=== PATIENT | female | born 1950 | race Caucasian/White ===

== ENCOUNTER → 2016-07-09 | Outpatient (CLI) | payer OTHER | LOC: BMCIMAGING 14:04 | PROVIDERS: ATTEND Internal Medicine | DX: J40 Bronchitis, not specified as acute or chronic (principal) ==

== ENCOUNTER → 2016-11-20 | Outpatient (CLI) | payer OTHER | LOC: BMCIMAGING 13:39 | PROVIDERS: ATTEND Internal Medicine | DX: Z12.31 Encounter for screening mammogram for malignant neoplasm of breast (principal); R92.8 Other abnormal and inconclusive findings on diagnostic imaging of breast | CPT/HCPCS: G0202 ==

== ENCOUNTER → 2016-11-27 | Outpatient (CLI) | payer OTHER | LOC: BMCIMAGING 10:07 | PROVIDERS: ATTEND Internal Medicine | DX: Z12.39 Encounter for other screening for malignant neoplasm of breast (principal); N63 Unspecified lump in breast | CPT/HCPCS: G0206 ==

== ENCOUNTER → 2016-12-03 | Outpatient (CLI) | payer OTHER ==
[~2016-12-03] MED LIST: BUPIVACAINE 0.5% 10 ML SDV ONE; LIDO/EPI 1% **Not for Epidural 20 ML MDV ONE; LIDOCAINE 1% 300 MG/30 ML SDV ONE; THROMBIN (BOVINE) 5,000 UNIT VIAL TP ONE
== END ==
LOC: FIMAGING 07:05
PROVIDERS: ATTEND Internal Medicine
PROC: 0HBT3ZX Excision of Right Breast, Percutaneous Approach, Diagnostic (ICD-10-PCS; principal; 2016-12-03)
DX: C50.911 Malignant neoplasm of unspecified site of right female breast (principal)

== ENCOUNTER → 2016-12-11 | Outpatient (CLI) | payer OTHER ==
[~2016-12-11] MED LIST changes: -BUPIVACAINE 0.5% 10 ML SDV ONE; -LIDO/EPI 1% **Not for Epidural 20 ML MDV ONE; -THROMBIN (BOVINE) 5,000 UNIT VIAL TP ONE
== END ==
LOC: FIMAGING 07:05
PROVIDERS: ATTEND Surgery
PROC: 3E0W3HZ Introduction of Radioactive Substance into Lymphatics, Percutaneous Approach (ICD-10-PCS; principal; 2016-12-11)
PROC: 0HHT31Z Insertion of Radioactive Element into Right Breast, Percutaneous Approach (ICD-10-PCS; 2016-12-11)
DX: C50.411 Malignant neoplasm of upper-outer quadrant of right female breast (principal)
CPT/HCPCS: 19281; 38792; A9520

== ENCOUNTER → 2017-01-14 | Outpatient (CLI) | payer OTHER | LOC: FIMAGING 12:54 | PROVIDERS: ATTEND Internal Medicine Hematology & Oncology | DX: R91.8 Other nonspecific abnormal finding of lung field (principal); C50.919 Malignant neoplasm of unspecified site of unspecified female breast ==

== ENCOUNTER → 2017-02-06 | Outpatient (CLI) | payer OTHER ==
[~2017-02-06] MED LIST changes: +GADOBUTROL 10 ML VIAL IVP ONE; -LIDOCAINE 1% 300 MG/30 ML SDV ONE
== END ==
LOC: FIMAGING 06:47
PROVIDERS: ATTEND Internal Medicine Hematology & Oncology
DX: K76.89 Other specified diseases of liver (principal); C50.919 Malignant neoplasm of unspecified site of unspecified female breast
CPT/HCPCS: A9585

== ENCOUNTER → 2017-03-11 | Outpatient (CLI) | payer OTHER | LOC: FIMAGING 09:22 | PROVIDERS: ATTEND Radiology Radiation Oncology | DX: J98.4 Other disorders of lung (principal); C50.211 Malignant neoplasm of upper-inner quadrant of right female breast; Z17.0 Estrogen receptor positive status [ER+] ==

== ENCOUNTER → 2017-05-18 | Outpatient (CLI) | payer OTHER | LOC: FIMAGING 11:46 | PROVIDERS: ATTEND Internal Medicine Hematology & Oncology | DX: Z13.820 Encounter for screening for osteoporosis (principal); M85.89 Other specified disorders of bone density and structure, multiple sites ==

== ENCOUNTER → 2017-11-11 | Outpatient (CLI) | payer OTHER | LOC: FIMAGING 08:38 | PROVIDERS: ATTEND Internal Medicine | DX: R91.1 Solitary pulmonary nodule (principal) ==

== ENCOUNTER → 2017-11-22 | Outpatient (CLI) | payer OTHER | LOC: BMCIMAGING 12:19 | PROVIDERS: ATTEND Internal Medicine Hematology & Oncology | DX: Z12.31 Encounter for screening mammogram for malignant neoplasm of breast (principal); Z85.3 Personal history of malignant neoplasm of breast ==

== ENCOUNTER → 2018-04-01 | Outpatient (CLI) | payer OTHER | LOC: BMCIMAGING 10:50 | PROVIDERS: ATTEND Family Medicine | DX: M25.561 Pain in right knee (principal) ==

== ENCOUNTER → 2018-05-10 | Outpatient (CLI) | payer OTHER | LOC: BMCIMAGING 16:48 | PROVIDERS: ATTEND Family Medicine | DX: S82.032A Displaced transverse fracture of left patella, initial encounter for closed fracture (principal) ==